=== PATIENT | male | born 2005 | race African-American/Black ===

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

== ENCOUNTER 2025-04-13 10:43 | Emergency (ER) | payer BC, OTHER, SELFPAY ==
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
[2025-04-13 10:44] VITALS: BP 136/110; PULSE 90; RESP 20; TEMP 36.7; O2SAT 95
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
[2025-04-13] MEDS: KETOROLAC (*BKC) 60 MG/2 ML VIAL IM (11:41)
== END 2025-04-13 12:30 | disposition home or self-care (01) ==
PROVIDERS: Emergency Provider Nurse Practitioner Adult Health
DX: S46.911A Strain of unspecified muscle, fascia and tendon at shoulder and upper arm level, right arm, initial encounter (principal); V49.40XA Driver injured in collision with unspecified motor vehicles in traffic accident, initial encounter
CPT/HCPCS: 72040; 72100; 73030; 96372; 99284; J1885